=== PATIENT | male | born 1950 | race Caucasian/White ===

== ENCOUNTER → 2020-04-24 | Outpatient (CLI) | payer OTHER | LOC: SJCVCIMAG 08:36 | PROVIDERS: ATTEND Internal Medicine Cardiovascular Disease | DX: I08.3 Combined rheumatic disorders of mitral, aortic and tricuspid valves (principal); I10 Essential (primary) hypertension ==

== ENCOUNTER → 2021-01-02 | Outpatient (CLI) | payer OTHER | LOC: SJCVC 09:42 | PROVIDERS: ATTEND Internal Medicine Cardiovascular Disease | DX: I49.1 Atrial premature depolarization (principal); I25.10 Atherosclerotic heart disease of native coronary artery without angina pectoris; E78.00 Pure hypercholesterolemia, unspecified; R93.1 Abnormal findings on diagnostic imaging of heart and coronary circulation; I10 Essential (primary) hypertension; I38 Endocarditis, valve unspecified; I65.29 Occlusion and stenosis of unspecified carotid artery; Z79.82 Long term (current) use of aspirin; Z79.899 Other long term (current) drug therapy; Z98.890 Other specified postprocedural states ==